=== PATIENT | male | born 1965 | race Caucasian/White ===

== ENCOUNTER 2024-04-07 12:03 | Day surgery (SDC) | payer OTHER ==
[2024-04-02 14:40] VITALS: BMI 27.6
[2024-04-07 12:16] VITALS: TEMP 97
[2024-04-07 13:30] VITALS: RESP 18
[2024-04-07 13:33] VITALS: BP 102/60; PULSE 60
== END 2024-04-07 14:30 | disposition home or self-care (01) ==
LOC: FASU-ENDO 12:03
PROVIDERS: ATTEND Internal Medicine Gastroenterology
PROC: 0DB68ZX Excision of Stomach, Via Natural or Artificial Opening Endoscopic, Diagnostic (ICD-10-PCS; 2024-04-07)
PROC: 0DB48ZX Excision of Esophagogastric Junction, Via Natural or Artificial Opening Endoscopic, Diagnostic (ICD-10-PCS; 2024-04-07)
PROC: 0DB98ZX Excision of Duodenum, Via Natural or Artificial Opening Endoscopic, Diagnostic (ICD-10-PCS; principal; 2024-04-07 12:59)
DX: K29.50 Unspecified chronic gastritis without bleeding (principal); K20.90 Esophagitis, unspecified without bleeding; K44.9 Diaphragmatic hernia without obstruction or gangrene; R10.13 Epigastric pain
CPT/HCPCS: 88305-TC; 88342-TC